=== PATIENT | male | born 1975 | race Caucasian/White ===

== ENCOUNTER 2019-01-29 15:04 | Inpatient (IN) | payer MEDICAID ==
[~2019-01-29] VITALS: Ht 185.4 cm; Wt 104.3 kg
[2019-01-29] MEDS ORDERED: OXYCONTIN10 MG PO (15:21)
[2019-01-29] MEDS ORDERED: IMITREX100 MG PO (15:21)
[2019-01-29] MEDS ORDERED: REGLAN10 MG PO (15:22)
[2019-01-29] MEDS ORDERED: OMEPRAZOLE40 MG PO (15:22)
[2019-01-29] MEDS ORDERED: ASACOL HD800 MG PO (15:22)
[2019-01-29] MEDS ORDERED: ZOFRAN8 MG PO (15:22)
[2019-01-29] MEDS ORDERED: LISINOPRIL20 MG PO (15:23)
[2019-01-29 15:58] LABS: BASOPHILS 0.3 % (0-2); EOSINOPHILS 1.7 % (0-7); HEMOGLOBIN 17.2 g/dL (13.5-17.5); IMMATURE GRANULOCYTES 0.3 % (0-5); LYMPHOCYTES 21.6 % (15-50); MCHC 35.8 g/dL (31.0-37.0); MCV 86.6 fL (80.0-100.0); MEAN PLATELET VOLUME 10.1 fL (7.4-10.4); MONOCYTES 7.8 % (2-11); NEUTROPHILS 68.3 % (40-80); PLATELET COUNT 271 10x3/uL (130-400); RBC 5.54 10x6/uL (4.20-6.10)
[2019-01-29 16:04] LABS: APPEARANCE CLEAR (CLEAR); BILIRUBIN NEGATIVE (NEGATIVE); COLOR YELLOW (YELLOW); GLUCOSE NEGATIVE (NEGATIVE); KETONE MODERATE mg/dL (NEGATIVE); NITRITE NEGATIVE (NEGATIVE); PROTEIN NEGATIVE (NEGATIVE); UROBILINOGEN NORMAL (NORMAL)
[2019-01-29 16:18] LABS: ALBUMIN 4.4 g/dL (3.4-5.0); ALKALINE PHOSPHATASE 81 U/L (46-116); ALT (SGPT) 11 U/L (10-68); BILIRUBIN - TOTAL 0.88 mg/dL (0.2-1.3); CALC OSMOLALITY 278 mosm/kg (275-300); CALCIUM 9.2 mg/dL (8.5-10.1); CHLORIDE - SERUM 107 mmol/L (98-107); GLUCOSE 95 mg/dL (74-106); POTASSIUM - SERUM 3.6 mmol/L (3.5-5.1); PROTEIN - SERUM 7.9 g/dL (6.4-8.2); SODIUM 141 mmol/L (136-145); UREA NITROGEN 8 mg/dL (7-18); eGFR NON AFRICAN AMERICAN 87 mL/min (90-120)
[2019-01-29 16:23] LABS: AMYLASE - SERUM 34 U/L (25-115); C-REACTIVE PROTEIN 0.6 mg/dL (0.0-0.9); LIPASE 177 U/L (73-393)
[2019-01-29 16:26] LABS: TROPONIN-I < 0.017 ng/mL (0.000-0.060)
--- NOTE | 2019-01-29 17:00 | NUR ---
VASCULAR ACCESS NURSE OBTAINED IV ACCESS TO THE LEFT HAND WITH 22GUAGE IV AFTER SEVERAL ATTEMPTS PER VASCULAR ACCESS NURSE AND TWO RN'S.
--- NOTE | 2019-01-29 17:15 | NUR ---
IV STARTED BY VASCULAR ACCESS NURSE TO THE LEFT HAND DIFFICULT TO FLUSH, BUT APPEARS TO BE PATENT. CT UNABLE TO USE THIS IV. THIS NURSE OBTAINED IV ACCESS TO THE LEFT FOREARM, [address] NOTIFIED THAT PT IS NOW READY.
--- NOTE | 2019-01-29 18:00 | NUR ---
PT RETURNED TO ED AT THIS TIME VIA STRETCHER
--- NOTE | 2019-01-29 19:09 | NUR ---
HAND OFF REPORT GIVEN TO ESME WAGGONER
[2019-01-29 19:16] VITALS: BP 137/89
[2019-01-29 20:57] VITALS: BP 129/84
--- NOTE | 2019-01-29 22:48 | NUR ---
PT REPORT HANDED OFF TO JUAN F FLOOR NURSE AT THIS TIME.
--- NOTE | 2019-01-29 22:51 | NUR ---
LEVAQUIN INFUSION COMPLETE AT THIS TIME.
[2019-01-30 00:24] VITALS: BP 162/76; BMI 30.4
--- NOTE | 2019-01-30 05:13 | NUR ---
RESTING QUITELY IN BED RESP UNLABORED, NO APPARENT DISTRESS, CALL LIGHT IN REACH
[2019-01-30 05:40] LABS: BASOPHILS 0 % (0-2); EOSINOPHILS 0 % (0-7); HEMATOCRIT 42.7 % (42.0-54.0); HEMOGLOBIN 14.9 g/dL (13.5-17.5); IMMATURE GRANULOCYTES 0.2 % (0-5); LYMPHOCYTES 6.8 % (15-50); MCH 30.5 pg (26.0-34.0); MCHC 34.9 g/dL (31.0-37.0); MCV 87.3 fL (80.0-100.0); MEAN PLATELET VOLUME 10.9 fL (7.4-10.4); MONOCYTES 0.4 % (2-11); NEUTROPHILS 92.6 % (40-80); PLATELET COUNT 241 10x3/uL (130-400); RBC 4.89 10x6/uL (4.20-6.10); RDW 14.2 % (11.5-14.5)
[2019-01-30 05:49] VITALS: BP 143/65
[2019-01-30 05:59] LABS: ALBUMIN 3.5 g/dL (3.4-5.0); ALKALINE PHOSPHATASE 62 U/L (46-116); BILIRUBIN - TOTAL 0.57 mg/dL (0.2-1.3); CALC OSMOLALITY 282 mosm/kg (275-300); CALCIUM 8.5 mg/dL (8.5-10.1); CARBON DIOXIDE 25.4 mmol/L (21.0-32.0); CHLORIDE - SERUM 107 mmol/L (98-107); GLUCOSE 127 mg/dL (74-106); POTASSIUM - SERUM 4.1 mmol/L (3.5-5.1); PROTEIN - SERUM 6.6 g/dL (6.4-8.2); SODIUM 142 mmol/L (136-145); UREA NITROGEN 8 mg/dL (7-18); eGFR NON AFRICAN AMERICAN 87 mL/min (90-120)
[2019-01-30 06:04] LABS: ALT (SGPT) 14 U/L (10-68)
[2019-01-30 08:59] VITALS: BP 143/69
[2019-01-30 11:04] LABS: ERYTHROCYTE SEDIMENTATION RATE 1 mm/hr (0-15)
[2019-01-30 13:25] VITALS: BP 154/68
[2019-01-30 14:00] VITALS: Ht 185.4 cm; Wt 104.3 kg
--- NOTE | 2019-01-30 16:23 | NUR ---
PT RESTING IN BED. NO SIGNS OF DISTRESS. IV TO RIGHT HAND PATENT NO REDNESS OR TENDERNESS. COMPLAINS OF PAIN. MEDICATIONS GIVEN. DENIES ANY OTHER NEED AT THIS TIME. CALL LIGHT IN REACH. BED LOW POSITION. FAMILY AT BEDSIDE AT THIS TIME.
[2019-01-30 17:45] VITALS: BP 152/90
[2019-01-30 21:10] VITALS: BP 151/70
[2019-01-31 00:37] VITALS: BP 113/62
[2019-01-31 04:42] LABS: HEMATOCRIT 41.3 % (42.0-54.0); HEMOGLOBIN 14.5 g/dL (13.5-17.5); MCH 30.5 pg (26.0-34.0); MCHC 35.1 g/dL (31.0-37.0); MCV 86.8 fL (80.0-100.0); MEAN PLATELET VOLUME 10.8 fL (7.4-10.4); PLATELET COUNT 266 10x3/uL (130-400); RBC 4.76 10x6/uL (4.20-6.10); RDW 14.3 % (11.5-14.5); WBC 21.8 10x3/uL (4.8-10.8)
[2019-01-31 04:56] LABS: ALBUMIN 3.3 g/dL (3.4-5.0); ANION GAP 13.8 mmol/L (8-16); BILIRUBIN - TOTAL 0.38 mg/dL (0.2-1.3); CALCIUM 8.3 mg/dL (8.5-10.1); CREATININE - SERUM 1.2 mg/dL (0.6-1.3); POTASSIUM - SERUM 3.8 mmol/L (3.5-5.1); PROTEIN - SERUM 6.5 g/dL (6.4-8.2)
[2019-01-31 05:01] LABS: LYMPHOCYTES 8 % (15-50); MONOCYTES 4 % (2-11); NEUTROPHILS 88 % (40-80)
[2019-01-31 05:02] LABS: PLATELET ESTIMATE NORMAL
[2019-01-31 05:49] VITALS: BP 129/69
[2019-01-31 08:40] VITALS: BP 128/63
[2019-01-31 13:04] VITALS: BP 131/80
--- NOTE | 2019-01-31 14:00 | NUR ---
ALERT AND ORIENTED X4. ABDOMEN WITH BS NOTED X4. LUNGS CTA. IV RT. HAND INFUSING AT PRESCRIBED RATE WITH DIALUDID DEVELOPMENT REPRESENTATIVE AT PRESCRIBED RATE. NO SEIZURES NOTED. ENCOURAGED TO USE CALL LIGHT FOR ASSIST.
[2019-01-31 17:20] VITALS: BP 127/74
[2019-01-31 19:52] VITALS: BP 148/81
[2019-02-01 04:21] VITALS: BP 147/87
[2019-02-01 10:07] VITALS: BP 106/84
[2019-02-01 13:28] VITALS: BP 139/64
--- NOTE | 2019-02-01 15:50 | NUR ---
PT IS REQUESTING ZOFRAN MORE FREQUENTLY THAN IT IS ORDER, I CALLED [facility] AND ASKED IF WE COULD GET THE PT ON A ZOFRAN DRIP HE STATED IT IS OKAY TO ORDER THE ZOFRAN DRIP
[2019-02-01 18:01] VITALS: BP 166/92
--- NOTE | 2019-02-01 18:51 | NUR ---
I have reviewed this patient and I concur with the Shift Assessment completed by the Licensed Practical Nurse today this shift.
--- NOTE | 2019-02-01 19:20 | NUR ---
RCV`D PT. PT RESTING IN BED WITH EYES OPEN. ON THE CALL LIGHT R/T IV PUMP BEEPING CHANNEL ERROR, REPLACED WITH NEW CHANNEL. BREATHING EVEN AND UNLABORED. IV LOCATED TO RIGHT HAND, DILAUDID SERVICE CENTER TECHNICIAN PRESENT AND ZOPHRAN DRIP RUNNING AT 4.7. PT IS ALERT AND ORIENTED AND DENIES ANY FURTHER NEEDS AT THIS TIME. WILL CONTINUE TO MONITOR. BED LOW, CALL LIGHT IN REACH, RAILS UP X2.
[2019-02-01 19:45] VITALS: BP 156/86
--- NOTE | 2019-02-01 22:40 | NUR ---
DILAUDID FILLER SHAKER SYRINGE EMPTY, CHANGED SYRINGE. PT REPORTS PAIN 9/10, DENIES ANY FURTHER NEEDS AT THIS TIME. WILL CONTINUE TO MONITOR.
[2019-02-02 05:26] VITALS: BP 123/63
[2019-02-02 07:36] LABS: BASOPHILS 0 % (0-2); EOSINOPHILS 0 % (0-7); HEMATOCRIT 40.5 % (42.0-54.0); HEMOGLOBIN 14.2 g/dL (13.5-17.5); IMMATURE GRANULOCYTES 0.4 % (0-5); LYMPHOCYTES 10.1 % (15-50); MCH 30.4 pg (26.0-34.0); MCHC 35.1 g/dL (31.0-37.0); MCV 86.7 fL (80.0-100.0); MEAN PLATELET VOLUME 11.2 fL (7.4-10.4); MONOCYTES 3.7 % (2-11); NEUTROPHILS 85.8 % (40-80); PLATELET COUNT 223 10x3/uL (130-400); RBC 4.67 10x6/uL (4.20-6.10); RDW 14.6 % (11.5-14.5); WBC 11.4 10x3/uL (4.8-10.8)
--- NOTE | 2019-02-02 07:52 | NUR ---
ALERT AND ORIENTED. LUNGS CLEAR BILATERALLY IN ALL S[place]. HEART SOUNDS S1 AND S2 HEARD IN ALL S[place]. BOWEL SOUNDS ACTIVE X 4. HOOP PUNCH AND COILER OPERATOR PUMP FOR PAIN. DENIES NEEDS. BED LOW. CALL BALDWIN AND PERSONAL ITEMS IN REACH. WILL CONTINUE TO MONITOR.
[2019-02-02 07:55] LABS: CALC OSMOLALITY 282 mosm/kg (275-300); CALCIUM 8.1 mg/dL (8.5-10.1); CARBON DIOXIDE 25.8 mmol/L (21.0-32.0); CHLORIDE - SERUM 107 mmol/L (98-107); CREATININE - SERUM 0.9 mg/dL (0.6-1.3); GLUCOSE 112 mg/dL (74-106); POTASSIUM - SERUM 3.3 mmol/L (3.5-5.1); SODIUM 142 mmol/L (136-145); UREA NITROGEN 9 mg/dL (7-18); eGFR NON AFRICAN AMERICAN > 90 mL/min (90-120)
[2019-02-02 09:29] VITALS: BP 142/57
--- NOTE | 2019-02-02 10:19 | NUR ---
RESTING IN BED. DENIES NEEDS. WILL CONTINUE TO MONITOR.
--- NOTE | 2019-02-02 12:00 | NUR ---
RESTING IN BED. DENIES NEEDS. WILL CONTINUE TO MNITOR
[2019-02-02 13:27] VITALS: BP 155/82
--- NOTE | 2019-02-02 13:30 | NUR ---
PHARMACY NOTIFIED NEED ZOFRAN DRIP FOR PATIENT. STATED WILL BRING.
--- NOTE | 2019-02-02 14:06 | NUR ---
CALLED PHARMACY ABOUT PATIENT NICHOLAS DYKES. STATED WILL BRING.
--- NOTE | 2019-02-02 15:39 | NUR ---
BOLUS DOSE 0.4MG GIVEN FROM TUNNEL ELASTIC OPERATOR ZIGZAG PER REQUEST.
--- NOTE | 2019-02-02 17:54 | NUR ---
PATIENT SLEEPING. BED LOW. CALL BALDWIN AND PERSONAL ITEMS IN REACH. WILL CONTINUE TO MONITOR.
[2019-02-02 18:22] VITALS: BP 145/84
--- NOTE | 2019-02-02 19:41 | NUR ---
RCV`D PT. PT SITTING UP IN BED WITH AT THE BEDSIDE. BREATHING EVEN AND NONLABORED, NO SIGNS OF DISTRESS. IV LOCATED TO RIGHT HAND RUNNING NS KVO, DILAUDID PESTICIDE USE MEDICAL COORDINATOR PUMP PRESENT, AND ZOPHRAN DRIP AT 4.7. REPORTS PAIN IS 7/10. DENIES ANY NEEDS AT THIS TIME. WILL CONTINUE TO MONITOR.
[2019-02-02 20:14] VITALS: BP 131/70
--- NOTE | 2019-02-02 20:35 | NUR ---
DILAUDID SCIENCE PROFESSOR SYRINGE EMPTY, REPLACED WITH NEW SYRINGE AT SAME SETTINGS. PT REPORTS PAIN 01/08. DENIES ANY FURTHER NEEDS AT THIS TIME.
--- NOTE | 2019-02-02 21:00 | NUR ---
WHILE GIVING PT SCHEDULED 2100 MEDS HE STATED THAT HE WANTED TO PASS ALONG THAT WHEN HE HAS A BM HIS MEDS ARE COMING OUT WHOLE AND NOT BEING DIGESTED AND HE WANTED TO LET US KNOW. DENIES ANY OTHER NEEDS AT THIS TIME.
--- NOTE | 2019-02-02 22:08 | NUR ---
DISCONNECTED FROM IV FOR PT TO SHOWER.
[2019-02-03 02:12] VITALS: BP 105/48
--- NOTE | 2019-02-03 03:58 | NUR ---
FOUND PTS NICOTINE PATCH IN THE FLOOR AT BEDSIDE.
[2019-02-03 05:26] VITALS: BP 127/44
[2019-02-03 06:03] LABS: BASOPHILS 0 % (0-2); EOSINOPHILS 0 % (0-7); HEMATOCRIT 40.6 % (42.0-54.0); HEMOGLOBIN 14.2 g/dL (13.5-17.5); IMMATURE GRANULOCYTES 0.4 % (0-5); LYMPHOCYTES 8.8 % (15-50); MCV 85.7 fL (80.0-100.0); MEAN PLATELET VOLUME 11.2 fL (7.4-10.4); MONOCYTES 4.6 % (2-11); NEUTROPHILS 86.2 % (40-80); PLATELET COUNT 234 10x3/uL (130-400); RBC 4.74 10x6/uL (4.20-6.10); RDW 13.8 % (11.5-14.5); WBC 14.1 10x3/uL (4.8-10.8)
[2019-02-03 06:13] LABS: CALC OSMOLALITY 279 mosm/kg (275-300); CALCIUM 8.1 mg/dL (8.5-10.1); CARBON DIOXIDE 28.7 mmol/L (21.0-32.0); CHLORIDE - SERUM 104 mmol/L (98-107); GLUCOSE 131 mg/dL (74-106); POTASSIUM - SERUM 3.3 mmol/L (3.5-5.1); SODIUM 140 mmol/L (136-145); UREA NITROGEN 10 mg/dL (7-18); eGFR NON AFRICAN AMERICAN 87 mL/min (90-120)
--- NOTE | 2019-02-03 07:25 | NUR ---
ALERT AND ORIENTED, RESTING IN BED. NO C/O PAIN. DILAUDID RUBBER CURER MANAGING PAIN AT THIS TIME. NO S/S OF ACUTE DISTRESS NOTED. IV TO RIGHT HAND, NS INFUSING @ KVO. SITE PATENT WITHOUT REDNESS OR SWELLING. POTASSIUM 3.3, COVERED ON PREVIOUS SHIFT. PT DENIES ANY NEEDS AT THIS TIME. CALL LIGHT IN REACH. WILL CONTINUE TO MONITOR.
[2019-02-03 09:02] VITALS: BP 145/72
--- NOTE | 2019-02-03 09:30 | NUR ---
DISCONTINUED TWO WAY RADIO INSTALLER.
--- NOTE | 2019-02-03 11:59 | NUR ---
I have reviewed this patient and I concur with the Shift Assessment completed by the Licensed Practical Nurse today this shift.
[2019-02-03 12:54] VITALS: BP 159/76
[2019-02-03 17:42] VITALS: BP 157/76
--- NOTE | 2019-02-03 18:41 | NUR ---
PT RESTING IN BED, ALERT AND ORIENTED. NO C/O PAIN. NO S/S OF ACUTE DISTRESS NOTED. PT DENIES ANY NEEDS. CALL LIGHT IN REACH. WILL CONTINUE TO MONITOR.
--- NOTE | 2019-02-03 20:00 | NUR ---
PT SITTING UP IN BED WITHOUT DISTRESS, ALERT AND ORIENTED. IV RIGHT HAND RED AND SWOLLEN AROUND INSERTION SITE. DC'D WITH CATHETER TIP INTACT. RESITED 22G IV TO LEFT HAND X1 ATTEMPT. INFUSING NS @ 50. GAVE ZOFRAN ORDERED FOR NAUSEA. DENIES OTHER NEEDS AT THIS TIME. CL IN REACH, WILL CTM
[2019-02-03 21:10] VITALS: BP 150/83
[2019-02-04 05:22] VITALS: BP 143/84
[2019-02-04 06:00] LABS: CALC OSMOLALITY 283 mosm/kg (275-300); CALCIUM 7.7 mg/dL (8.5-10.1); CARBON DIOXIDE 29.7 mmol/L (21.0-32.0); CHLORIDE - SERUM 106 mmol/L (98-107); GLUCOSE 88 mg/dL (74-106); POTASSIUM - SERUM 3.1 mmol/L (3.5-5.1); SODIUM 143 mmol/L (136-145); UREA NITROGEN 12 mg/dL (7-18); eGFR NON AFRICAN AMERICAN 87 mL/min (90-120)
[2019-02-04 06:47] LABS: BASOPHILS 0.1 % (0-2); EOSINOPHILS 0.1 % (0-7); HEMATOCRIT 40.5 % (42.0-54.0); HEMOGLOBIN 14.3 g/dL (13.5-17.5); IMMATURE GRANULOCYTES 0.6 % (0-5); LYMPHOCYTES 24.6 % (15-50); MCH 30.3 pg (26.0-34.0); MCHC 35.3 g/dL (31.0-37.0); MCV 85.8 fL (80.0-100.0); MEAN PLATELET VOLUME 11.7 fL (7.4-10.4); NEUTROPHILS 64.6 % (40-80); PLATELET COUNT 231 10x3/uL (130-400); RBC 4.72 10x6/uL (4.20-6.10); WBC 15.2 10x3/uL (4.8-10.8)
--- NOTE | 2019-02-04 07:26 | NUR ---
REPORT RECIEVED. PT SITTING UP IN BED. L HAND PIV INFUSING NS @50. RESPIRATIONS EVEN AND UNLABORED. NO DISTRESS NOTED. PT HAS NO FURTHER NEEDS AT THIS TIME. BED LOCKED & IN LOWEST POSITION. CALL LIGHT WITHIN REACH. WILL CTM
[2019-02-04 08:14] VITALS: BP 160/94
[2019-02-04] MEDS ORDERED: LEVOFLOXAC500 MG/100 PO (08:43)
[2019-02-04] MEDS ORDERED: FLAGYL 500500 MG/100 PO (08:44)
[2019-02-04] MEDS ORDERED: PREDNISONE20 MG PO (08:45)
[2019-02-04] MEDS ORDERED: OXYCONTIN10 MG PO (08:46)
[2019-02-04] MEDS ORDERED: LISINOPRIL10 MG PO (09:02)
[2019-02-04] MEDS ORDERED: LEVOFLOXACIN500 MG PO (09:34)
[2019-02-04] MEDS ORDERED: FLAGYL500 MG PO (09:36)
--- NOTE | 2019-02-04 10:46 | NUR ---
DC PAPERWORK SIGNED AND GONE OVER WITH PT. ANSWERED ALL QUESTIONS. PIV REMOVED. CATH TIP FULLY INTACT.
--- NOTE | 2019-02-04 11:10 | NUR ---
PT ANTIONE DOWNSTAIRS VIA WHEELCHAIR. LEFT WITH [id number].
== END 2019-02-04 11:14 | disposition home or self-care (01) | DRG 386 ==
LOC: D.ER 15:04 → D.MS 21:26
PROVIDERS: Emergency Medicine; Family Medicine; ADMIT Legal Medicine; ATTEND Legal Medicine
DX: K50.918 Crohn's disease, unspecified, with other complication (principal); A09 Infectious gastroenteritis and colitis, unspecified; I10 Essential (primary) hypertension; K21.9 Gastro-esophageal reflux disease without esophagitis; Z86.73 Personal history of transient ischemic attack (TIA), and cerebral infarction without residual deficits; Z72.0 Tobacco use

== ENCOUNTER → 2019-08-29 11:47 | Outpatient (CLI) | payer MEDICAID ==
[2019-01-30 14:00] VITALS: BMI 30.3
[~2019-08-29 11:47] MED LIST: ASACOL HD800 MG PO; FLAGYL 500500 MG/100 PO; FLAGYL500 MG PO; IMITREX100 MG PO; LEVOFLOXAC500 MG/100 PO; LEVOFLOXACIN500 MG PO; LISINOPRIL10 MG PO; LISINOPRIL20 MG PO; OMEPRAZOLE40 MG PO; OXYCONTIN10 MG PO; PREDNISONE20 MG PO; REGLAN10 MG PO; ZOFRAN8 MG PO
== END | disposition home or self-care (01) ==
LOC: D.LAB 11:47
PROVIDERS: ATTEND Emergency Medicine
DX: M25.551 Pain in right hip (principal)